=== PATIENT | female | born 1955 | race Caucasian/White ===

== ENCOUNTER 2016-12-10 13:06 | Day surgery (SDC) | payer MEDICARE ==
[~2016-12-10] VITALS: Ht 170.2 cm; Wt 127.3 kg
--- NOTE | ~2016-12-10 | OP ---
PATIENT NAME: ARMAAN NEELY MEDICAL RECORD: [id number] [facility] DATE: SURGEON: LOTUS LOPEZ DO DATE OF OPERATION: 12/10/2016 PROCEDURE: EGD with balloon dilation less than 30 mm and biopsies. INDICATIONS FOR PROCEDURE: Dysphagia. SCOPE: Olympus video gastroscope. MEDICATIONS: Propofol 200 mg IV per anesthesia. ESTIMATED BLOOD LOSS: Less than 2 mL. COMPLICATIONS: None. FINDINGS: Informed consent was given. The patient was made comfortable with the above medication. After reaching an adequate level of sedation by slow IV push, the patient was placed on her left side. The endoscope was then advanced under direct visualization through the mouth to the second portion of the duodenum. The upper, middle, and lower thirds of the esophagus appeared normal. At the GE junction, there was evidence of severe erosive reflux esophagitis consistent with [place] class D esophagitis. There was a stricture associated with this inflammation with a diameter of approximately 15-16 mm in diameter. The endoscope was advanced beyond this site with yeast without dilation. In the stomach, the endoscope was retroflexed to view the cardia, where a small sliding type hiatal hernia was present. The fundus and body of the stomach appeared normal. As the endoscope was advanced down to the antrum and prepyloric region, there was some streaky erythema and granularity consistent with gastritis. Random biopsies were taken to submit for histology and to rule out H. pylori. The endoscope was advanced beyond the pylorus into the duodenum where the bulb and second portion of the duodenum appeared normal. The endoscope was then withdrawn back into the esophagus at the site of the esophagitis. Two biopsies were taken with cold forceps from that site to submit for histology. After this, a 16-18 mm Olympus CRE balloon was placed through the endoscope and greater dilations were made from 16-mm up to maximum diameter of 18-mm. The maneuver was successful. The endoscope was then withdrawn from the patient. The patient tolerated the procedure well and there were no complications. IMPRESSION: 1. LA class D reflux-induced esophagitis. 2. Esophageal stricture which appears to be a benign intrinsic stricture related to antral inflammation. 3. Small sliding hiatal hernia. 4. Gastritis. PLAN AND RECOMMENDATIONS: 1. Discharge home when recovery parameters are met. 2. GERD diet and reflux precautions. 3. Start antacids consisting of a proton pump inhibitor at 40 mEq daily. 4. Start Carafate 1 gram tablets dissolved in 20 cc of water q.i.d. times 2 weeks. 5. Repeat EGD in 12 weeks to assure healing of inflammation and to re-consider repeating balloon dilation if indicated. OPERATIVE REPORT [id number] ARMAAN NEELY 6. Notify GI clinic if medications are not improving symptoms. TRANSINT:[id number] Voice Confirmation ID: [id number] DOCUMENT ID: [id number] LOTUS LOPEZ DO CC: [id number] DICTATION DATE: 12/10/16 164 [employer] [facility] OPERATOR: 12/10/162103 [facility] 12/10/16 [facility] [address] [place] [address]
[~2016-12-10 13:06] MED LIST: AMBIEN10 MG PO; BISOPROLOL-HCT1 EAC1 PO; CELEXA20 MG PO; HYDROCODONE-APA1 TAB PO; NEURONTIN800 MG PO; SOMA350 MG PO; ULTRAM50 MG PO; XARELTO15 MG PO; ZEBETA10 MG PO
[2016-12-10 13:49] LABS: HEMATOCRIT 42.7 % (36.0-48.0); HEMOGLOBIN 14.1 g/dL (12-16); MCH 31.3 pg (26.0-34.0); MCV 94.9 fL (80.0-100.0); MEAN PLATELET VOLUME 9.2 fL (7.4-10.4); RBC 4.5 10x6/uL (4.00-5.40); RDW 12.8 % (11.5-14.5); WBC 8.9 10x3/uL (4.8-10.8)
[2016-12-10] MEDS ORDERED: ZANAFLEX2 M1 PO (14:11)
[2016-12-10] MEDS ORDERED: LIPITOR20 MG PO (14:13)
[2016-12-10] MEDS ORDERED: FUROSEMIDE20 MG PO (14:14)
[2016-12-10 14:22] VITALS: BP 160/87; Ht 170.2 cm; Wt 127.3 kg
--- NOTE | 2016-12-10 16:49 | NUR ---
DILATED ESOPHAGUS TO 18MM.
== END 2016-12-10 17:40 | disposition home or self-care (01) ==
LOC: D.OPS 13:06
PROVIDERS: Anesthesiology
DX: R13.10 Dysphagia, unspecified (principal); G47.30 Sleep apnea, unspecified; I10 Essential (primary) hypertension; E66.01 Morbid (severe) obesity due to excess calories; Z68.41 Body mass index [BMI] 40.0-44.9, adult; Z01.812 Encounter for preprocedural laboratory examination

== ENCOUNTER → 2017-08-11 17:01 | Outpatient (CLI) | payer OTHER ==
[2016-12-10 14:22] VITALS: BMI 43.9
[~2017-08-11 17:01] MED LIST changes: +FUROSEMIDE20 MG PO; +LIPITOR20 MG PO; +ZANAFLEX2 M1 PO
== END | disposition home or self-care (01) ==
LOC: D.MAMMO 15:15
DX: Z12.31 Encounter for screening mammogram for malignant neoplasm of breast (principal)

== ENCOUNTER → 2017-09-03 19:50 | Outpatient (CLI) | payer OTHER ==
[2016-12-10 14:22] VITALS: BMI 43.9
== END | disposition home or self-care (01) ==
LOC: D.MAMMO 14:00
DX: R92.8 Other abnormal and inconclusive findings on diagnostic imaging of breast (principal)

== ENCOUNTER 2018-06-14 08:00 | Outpatient (CLI) | payer OTHER ==
[2016-12-10 14:22] VITALS: BMI 43.9
== END 2018-06-14 09:00 | disposition home or self-care (01) ==
LOC: D.MAMMO 08:00
DX: R92.8 Other abnormal and inconclusive findings on diagnostic imaging of breast (principal)

== ENCOUNTER 2018-12-31 09:00 | Outpatient (CLI) | payer MEDICARE ==
[2016-12-10 14:22] VITALS: BMI 43.9
== END 2018-12-31 10:00 | disposition home or self-care (01) ==
LOC: D.MAMMO 09:00
PROVIDERS: ATTEND Family Medicine
DX: R92.8 Other abnormal and inconclusive findings on diagnostic imaging of breast (principal)